=== PATIENT | male | born 2005 | race Caucasian/White ===

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

== ENCOUNTER 2023-04-16 14:21 | Emergency (ER) | payer OTHER, SELFPAY ==
[2023-04-16 14:33] VITALS: BP 141/79; PULSE 61; RESP 16; TEMP 36.5; O2SAT 99
--- NOTE | 2023-04-16 14:34 | ED.URI ---
HPI - URI/Sore Throat General Chief Complaint: Upper Respiratory Infection Stated Complaint: Cough/Sinus Congestion/Sore Throat Time Seen by Provider: 04/16/23 14:35 Source: patient, RN notes reviewed and old records reviewed Mode of arrival: ambulatory Limitations: no limitations History of Present Illness HPI Narrative: 16-year-old male presents to the [facility] with complaints of cough, cut sinus congestion, sore throat for 5 days Presents to the [facility] with his dad. MD elicited complaint: sore throat Related Data Allergies Allergy/AdvReac Type Severity Reaction Status Date / Time No Known Allergies Allergy Verified 09/18/21 15:17 Review of Systems Review of Systems: All systems reviewed & are unremarkable except as noted in HPI and below Constitutional: Constitutional: Reports no additional constitutional complaints Eyes: Eyes: Reports no additional eye complaints ENT: Reports as per HPI Cardiovascular: Cardiovascular: Reports no additional cardiovascular complaints, Denies chest pain and Denies dyspnea Respiratory: Respiratory: Reports no additional respiratory complaints, Denies chest congestion, Denies cough and Denies dyspnea Gastrointestinal: Gastrointestinal: Reports no additional gastrointestinal complaints, Denies abdominal pain, Denies nausea and Denies vomiting Musculoskeletal: Musculoskeletal: Reports no additional musculoskeletal complaints Integumentary/Breasts: Skin/Breast: Reports system reviewed and no additional complaints, except as docu Neurologic: Reports system reviewed and no additional complaints, except as documented Psychiatric: Psychiatric: Reports no additional psychiatric complaints Allergic/Immunologic: Allergic/Immunologic: Reports no additional allergic/immunologic complaints [facility] Past Medical History Medical History BMI 33.0-33.9,adult COVID-19 No significant past medical history Family History Family History Father No problems noted. Mother No problems noted. Sibling No problems noted. 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 There is no relevant family history pertinent to the patient complaint. Exam Const: General: cooperative, healthy appearing, comfortable, no acute distress, well developed, alert and well nourished Nutritional Appearance: well nourished Orientation/consciousness: patient oriented x3 Limitations: no limitations HENMT: Head: normal to inspection Ears: hearing grossly normal bilaterally, external ears normal, EAC's normal and TM abnormal with fluid behind the TM bilateral Face/Nose/Sinus: Normal external nose present, Normal nares present, Normal nasal mucous membranes and turbinates present and normal facial exam Face and sinus: normal facial exam Mouth: Yes Normal oral and palatal mucosa present, Yes lip normal and Yes moist mucous membranes Throat: posterior oropharynx normal, uvula midline and postnasal drainage Eyes: General: appearance normal, both eyes and all related structures Alignment and Position: alignment normal Periorbital: periorbital findings normal Pupils: Equal, round and reactive pupils present EOM: EOMs intact bilaterally Neck: Neck: normal visual inspection, full ROM, no lymphadenopathy and no meningeal signs Chest: Chest palpation & inspection: normal inspection of the ch
== END 2023-04-16 15:06 | disposition home or self-care (01) ==
PROVIDERS: Emergency Provider Nurse Practitioner; PCP Family Medicine
DX: J06.9 Acute upper respiratory infection, unspecified (principal)
CPT/HCPCS: 87081; 87880; 99213; G0463

== ENCOUNTER 2023-12-03 13:46 | Emergency (ER) | payer OTHER, SELFPAY ==
[2023-12-03 14:02] VITALS: BP 134/78; PULSE 83; RESP 20; TEMP 37; O2SAT 97
--- NOTE | 2023-12-03 14:39 | ED.URI ---
HPI - URI/Sore Throat General Chief Complaint: Upper Respiratory Infection Stated Complaint: Congestion/Cough/Fever Time Seen by Provider: 12/03/23 14:39 History of Present Illness HPI Narrative: 18 y/o male tested positive for Covid yesterday, he presented for work note. Reports headache, body aches, sinus pressure/congestion, cough. Onset 4 days. Denies sob, wheezing, n/v/d/f/c. Taking otc meds for symptoms. Related Data Home Medications Medication Instructions Recorded Confirmed No Home Medications 12/03/23 12/03/23 Allergies Allergy/AdvReac Type Severity Reaction Status Date / Time No Known Allergies Allergy Verified 12/03/23 14:15 Review of Systems Review of Systems: per HPI [facility] Past Medical History Medical History BMI 33.0-33.9,adult COVID-19 No significant past medical history Family History Family History Father No problems noted. Mother No problems noted. Sibling No problems noted. Social History Social History Smoking status: Never smoker Second hand tobacco smoke exposure: No Alcohol intake: never Substance use: never Substance use type: does not use Living arrangements: with family Occupation/Education: student Additional occupation/education comments: college freshman-[employer] Gender identity (if verbalized by the patient): Male Exam Narrative: GENERAL: well-appearing, no acute distress. EYES: conjunctivae clear ENT: Mucous membranes moist. TMs pearly garrett with normal light reflex bilaterally; no tragal tenderness. NECK: Supple. No lymphadenopathy CHEST: Clear to auscultation, breath sounds equal. HEART: Regular rate and rhythm. No murmur heard. SKIN: Warm, dry, no rash. NEURO: Alert and oriented x3. Course Course Emergency Course: Patient is aware of diagnosis, understands and agrees to treatment plan. Anticipatory guidance given. Patient agrees to follow-up as directed and is aware of reasons to seek care at the emergency department. Portions of this record may have been created with voice recognition software Level of Care: Express Care Visit Vital Signs Vital signs: Vital Signs Temperature 98.6 F 12/03/23 14:02 Pulse Rate 83 12/03/23 14:02 Respiratory Rate 20 12/03/23 14:02 Blood Pressure 134/78 12/03/23 14:02 Pulse Oximetry 97 12/03/23 14:02 Oxygen Delivery Room Air 12/03/23 14:02 Temperature 98.6 F 12/03/23 14:02 Pulse Rate 83 12/03/23 14:02 Respiratory Rate 20 12/03/23 14:02 Blood Pressure 134/78 12/03/23 14:02 Pulse Oximetry 97 12/03/23 14:02 Oxygen Delivery Room Air 12/03/23 14:02 MDM - URI/Sore Throat MDM Narrative Medical decision making narrative: Discussed physical exam findings. Pt tested positive for covid at home yesterday. Provided with note for work with quarantine guidelines. Advised supportive measures and signs/symptoms to go to the ER. Pt is appropriate for outpt treatment and f/u. Differential Diagnosis Differential diagnosis: Likely upper respiratory infection, sinusitis, viral infection and influenza Discharge Plan Discharge Clinical Impression: Viral infection Patient Disposition: Home, Self-Care Condition: Stable Instructions: COVID-19 (Coronavirus Disease 2019) (ED) Additional Instructions: Your home COVID test was positive and is sufficient to follow the isolation guidelines. The following recommendations have been made by the CDC and local Health Departments, regarding COVID-19: -Those individuals with mild cases of COVID-19 can generally be discontinued from isolation 5 days AFTER the onset of symptoms AND the resolution of fever for 24hrs (without the use of fever-reducing medications)* -When you return to public, wear a mask at all times for an add
== END 2023-12-03 14:45 | disposition home or self-care (01) ==
PROVIDERS: Emergency Provider Nurse Practitioner Family; PCP Family Medicine
DX: B34.9 Viral infection, unspecified (principal)
CPT/HCPCS: 99211; G0463